=== PATIENT | female | born 1960 | race Caucasian/White ===

== ENCOUNTER 2023-01-25 11:17 | Emergency (ER) | payer OTHER, SELFPAY ==
[2023-01-25 11:25] VITALS: BP 132/85; PULSE 98; RESP 17; TEMP 36.2; O2SAT 96; BMI 32.0
--- NOTE | 2023-01-25 11:41 | DI.CT.S_ITS ---
PROCEDURE: CT HEAD/BRAIN WO CON INDICATIONS: fall, forehead hematoma TECHNIQUE: Noncontrast 4.5 mm thick angled axial sections acquired from the foramen magnum to the vertex, with coronal and sagittal reformats. For radiation dose reduction, the following was used: automated exposure control, adjustment of mA and/or kV according to patient size. COMPARISON: None. FINDINGS: Image quality: Excellent. CSF spaces: Basal cisterns are patent. No extra-axial fluid collections. The ventricles are symmetric in size and shape. Brain: No intracranial bleeds or masses. There is cerebral volume loss for age, with resultant ventricular and sulcal prominence. There are periventricular and deep white matter chronic small vessel ischemic changes. There is intracranial internal carotid artery atherosclerosis. Skull and face: Calvarium and visualized facial bones appear intact, without suspicious lesions. Sinuses: Visualized sinuses and mastoids are clear. IMPRESSION: No acute intracranial process. Dictated by: Paul Merchant M.D. on 01/25/2023 at 12:39 Approved by: Paul Merchant M.D. on 01/25/2023 at 12:40
--- NOTE | 2023-01-25 11:44 | ED_ITS ---
HPI - Fall <ELLE Howard - Last Filed: 01/25/23 13:21> General Chief Complaint: Fall Stated Complaint: sent by [facility] Time Seen by Provider: 01/25/23 11:39 Source: patient Mode of arrival: Family Vehicle History of Present Illness HPI Narrative: This is a 62-year-old female who was in her closet when she turned and felt dizzy and struck the front of her head into the walk-in closet. She states that she is had problems with vertigo only when turning her head to the left and this is gotten worse recently. She has previously been referred to physical therapy for her balance. She states that when she turns 38 she was ?got dizzy ?. She states that she is had problems with this for some time but no problems when turning her head to the right. She has not been to vestibular therapist before. Denies any loss of consciousness when she hit her head but does have bruising and some swelling to the left side of her forehead. She initially had double vision at distance and went to the [facility] urgent care prior to coming into the emergency department. She was sent here for CT imaging due to her vision change and bruising to her forehead. She is not on any anticoagulants but states that she bruises easily and the bruising on her arms is from a few days ago. She denies any safety concerns at home. Related Data Allergies Allergy/AdvReac Type Severity Reaction Status Date / Time lisinopril Allergy Verified 01/25/23 11:33 Sulfa (Sulfonamide Allergy Rash Verified 01/25/23 11:33 Antibiotics) Review of Systems <ELLE Howard - Last Filed: 01/25/23 13:21> Review of Systems ROS Unobtainable: All systems reviewed & are unremarkable except as noted in HPI and below Patient History <ELLE Howard - Last Filed: 01/25/23 13:21> Social History Smoking Status: Never smoker Smoking Status: Never smoker alcohol intake frequency: 0-2 drinks per day Substance Use Type: does not use Exam <ELLE Howard - Last Filed: 01/25/23 13:21> Narrative Exam Narrative: Reviewed vitals signs and nursing notes. General: Pleasant, sitting upright, in no acute distress, well groomed, afebrile HEENT: symmetrical facial expressions, moist mucous membranes, neck is supple, no nystagmus with lateral gaze, pupils are equal and reactive to light, c ontusion with small hematoma above the left eyebrow, no palpable skull depression or deformity, no tenderness over the orbital rim, no visual field cut, no cervical spine tenderness to palpation, denies any neck pain, normal range of motion, no tenderness over TMJ, no newell sign or raccoon eyes, no tenderness over bilateral mastoids, clear speech CV: regular rate and rhythm, warm extremities Respiratory: normal work of breathing, without tachypnea or hypoxia. GI: abdomen soft, nondistended, without CVA tenderness bilaterally. MSK: moves all extremities, no weakness, normal tone, ambulatory without deficit, normal gait, Skin: brisk capillary refill, without rash or wound Neuro: clear speech and normal cognition, A&O x3, GCS 15, no focal motor or sensation deficits Initial Vital Signs Initial Vital Signs: Vital Signs Temperature 97.1 F L 01/25/23 11:25 Pulse Rate 98 H 01/25/23 11:25 Respiratory Rate 17 01/25/23 11:25 Blood Pressure 132/85 01/25/23 11:25 Pulse Oximetry 96 01/25/23 11:25 Oxygen Delivery Method Room Air 01/25/23 11:25 <Claudia Olea DO - Last Filed: 02/03/23 01:44> Initial Vital Signs Initial Vital Signs: Vital Signs Temperature 97.1 F L 01/25/23 11:25 Pulse Rate 98 H 01/25/23 11:25 Respiratory Rate 17 01/25/23 11:25 Blood Pressure 132/85 01/25/23 11:25 Pulse Oximetry 96 01/25/23 11:25 Oxygen Delivery Method Room Air 01/25/23 11:25 Scores <ELLE Howard - Last Filed: 01/25/23 13:21> [place] CT Head Rule Age <16 years old: No Patient on blood thinners: No Seizure after injury: No Exclusion: Patient NOT Excluded, Proceed to next steps GCS < 15 at 2 hr post trauma: No Suspected open or depressed skull fracture: No Any sign of basilar skull fracture (hemotympanum, raccoon eyes, Newell's sign, CSF beronica-/rhinorrhea): No Two or more episodes of vomiting: No Age greater or equal to 65 years: No Retrograde amnesia to the event greater or equal to 30 min: No Dangerous Mechanism (pedestrian vs. mv, occupant ejected from mv, fall from >3 ft or > 5 stairs): No Recommendation: CT unnecessary <Claudia Olea DO - Last Filed: 02/03/23 01:44> [place] CT Head Rule Exclusion: Patient NOT Excluded, Proceed to next steps Recommendation: CT unnecessary Course <ELLE Howard - Last Filed: 01/25/23 13:21> Orders Ordered: ED Orders 01/25/23 11:41 CT head/brain wo con Stat Vital Signs Vital signs: Vital Signs - 8 hr 01/25/23 11:25 Temperature 97.1 F L Pulse Rate 98 H Respiratory Rate 17 Blood Pressure 132/85 Pulse Oximetry 96 Oxygen Delivery Method Room Air <Claudia Olea DO - Last Filed: 02/03/23 01:44> Orders Ordered: ED Orders 01/25/23 11:41 CT head/brain wo con Stat Vital Signs Vital signs: Vital Signs - 8 hr 01/25/23 11:25 Temperature 97.1 F L Pulse Rate 98 H Respiratory Rate 17 Blood Pressure 132/85 Pulse Oximetry 96 Oxygen Delivery Method Room Air MDM - Fall <ELLE Howard - Last Filed: 01/25/23 13:21> Lab Data Labs: Urine Dip Bedside Urine Glucose Negative Bedside Urine Bilirubin - Negative Bedside Urine Ketone - Negative Urine Specific Dale 1.005 Bedside Urine Occult Blood - Negative Bedside Urine pH 6.0 Bedside Urine Protein - Negative Bedside Urine Urobilinogen - Negative Bedside Urine Nitrite - Negative Bedside Urine Leukocytes - Negative Esterase Imaging Data CT scan - head: Radiologist's Impression: [address] [address] [address] Scan Report Signed Patient: Janette Pitts MR#: [id number] : 1960 Acct:[id number] Age/Sex: 62 / F Date of Service: 01/25/23 Loc: ED Accession Number: [id number] ?? Procedure: CT head/brain wo con Ordering Provider: Venecia Cordero PROCEDURE:? CT HEAD/BRAIN WO CON ? INDICATIONS:? fall, forehead hematoma ? TECHNIQUE:? Noncontrast 4.5 mm thick angled axial sections acquired from the foramen magnum to the vertex, with coronal and sagittal reformats.? For radiation dose reduction, the following was used:? automated exposure control, adjustment of mA and/or kV according to patient size.? ? COMPARISON:? None. ? FINDINGS:? Image quality:? Excellent.? ? CSF spaces:? Basal cisterns are patent.? No extra-axial fluid collections.? The ventricles are symmetric in size and shape.? ? Brain:? No intracranial bleeds or masses.? There is cerebral volume loss for age, with resultant ventricular and sulcal prominence.? There are periventricular and deep white matter chronic small vessel ischemic changes.? There is intracranial internal carotid artery atherosclerosis.? ? Skull and face:? Calvarium and visualized facial bones appear intact, without suspicious lesions.? ? Sinuses:? Visualized sinuses and mastoids are clear.? ? IMPRESSION:? No acute intracranial process. ? ? Dictated by: Paul Merchant M.D. on 01/25/2023 at 12:39 ? ? Approved by: Paul Merchant M.D. on 01/25/2023 at 12:40 ? MDM Narrative Medical decision making narrative: Chief Complaint: Head injury, vertigo Multiple etiologies for patient's complaint considered including, but not limited to: Peripheral vertigo, central vertigo, intracranial mass, intracranial hemorrhage, Meniere's disease, vestibular neuritis, BPPV, acoustic neuroma, MS, basilar/vertebral artery insufficiency, cerebellar mass, autoimmune inner ear disease, otosclerosis, Arnold-Chiari malformation, anemia I have independently reviewed the patient's vital signs and nursing notes as well as prior records if available. Plan: Patient's exam is unremarkable, she has a small contusion with ecchymosis to the left forehead, no other cranial head trauma on exam, no focal neuro deficits although patient does have dizziness when she turns her head to the left. She is not consistently dizzy she has dizziness when she turn her head and with position changes. Patient's history is consistent with Meniere disease but this can be BPPV, or above differential. Plan for CT head without contrast, patient's neurologic exam is without deficit at this time. Her CT is without acute abnormality or mass, I encouraged her to follow-up with ENT as Dr. Crockett is on-call I referred her to him and forward the note for vestibular testing and evaluation. Patient would benefit from vestibular 3rd by and if she is interested trialing indications or therapy she may have improvement of her vertigo. I encouraged her to follow-up with her PCP for referral to vestibular therapy Course of Care: Social considerations that may affect disposition: none Questions are addressed and there is agreement with the plan and for follow-up with PCP and ENT. I consulted with the ED attending physician Dr. Olea as needed for higher level of care considerations and they were available for discussion and recommendations regarding plan of care and diagnostic testing. Patient is appropriate for outpatient management. <Claudia Olea, DO - Last Filed: 02/03/23 01:44> Lab Data Labs: Urine Dip Bedside Urine Glucose Negative Bedside Urine Bilirubin - Negative Bedside Urine Ketone - Negative Urine Specific Dale 1.005 Bedside Urine Occult Blood - Negative Bedside Urine pH 6.0 Bedside Urine Protein - Negative Bedside Urine Urobilinogen - Negative Bedside Urine Nitrite - Negative Bedside Urine Leukocytes - Negative Esterase Discharge Plan Departure Patient Disposition: Home Clinical Impression: Peripheral positional vertigo Qualifiers: Laterality: left Qualified Code(s): H81.392 - Other peripheral vertigo, left ear Closed head injury Qualifiers: Encounter type: initial encounter Qualified Code(s): S09.90XA - Unspecified injury of head, initial encounter Instructions: Meniere Disease, Benign Paroxysmal Positional Vertigo Activity Restrictions/Additional Instructions: *You have been diagnosed with positional vertigo with history of vertical consistent with peripheral vertigo versus Meniere's disease. Please schedule follow-up with ear nose and throat for further testing and treatment. I have forwarded a note to them. Dr. Crockett is an repairer [employer] and can get you outpatient providers as necessary. ELLE Tinajero can get you r eferred to vestibular therapy through your physical therapy group or another vestibular therapist but my referral to [facility] maybe adequate. I hope this is helpful for you. If you have ongoing headache, nausea, sensitivity to light and sound, you may have a concussion and to reduce stimulation and activity until your symptoms improve. Your CT does not show any bleeds or masses, this is great and hopefully you can follow-up with ENT and have improved dizziness. Please bring the functional level scale for Meniere's disease with your packet to your appointment to evaluate how much this affects her daily life. *What to do: *Please continue to take your regular medications as directed. [ ] New medication prescriptions sent to your pharmacy: [ ] [ ] New medication written as a paper prescription [ x] No new medications given *Please call and schedule follow up with your primary care provider in 2-3 days, at least for an update. Let them know you were seen in the Emergency Department for the above problem. We will electronically transmit a record of today's note if your PCP or specialist is in our system. *If you do not have a primary care provider please contact [phone] to establish care with one of the [facility] primary care providers. *Return to the Emergency Department for worsening symptoms, inability to keep liquids down, fever greater than 101F, chills, or other concerning symptom. Referrals: Bossman Crockett MD [Physician] - 3-5 days Vale Tinajero ARNP [Primary Care Provider] - Stand Alone Forms: Patient Portal/API <Claudia Olea DO - Last Filed: 02/03/23 01:44> Cosign ED Attending Greer Attestation: I was immediately available in the department for consultation. Documentation has been reviewed.
[2023-01-25 12:51] VITALS: BP 150/76; PULSE 87; RESP 14; O2SAT 98
== END 2023-01-25 12:56 | disposition home or self-care (01) ==
PROVIDERS: Emergency Provider Nurse Practitioner Critical Care Medicine; PCP Nurse Practitioner Family
DX: S09.90XA Unspecified injury of head, initial encounter (principal); H81.392 Other peripheral vertigo, left ear; W18.09XA Striking against other object with subsequent fall, initial encounter
CPT/HCPCS: 70450; 81003; 99283; 99284